=== PATIENT | male | born 1960 | race Hispanic/Latino ===

== ENCOUNTER 2020-07-30 09:03 | Outpatient (CLI) | payer OTHER ==
--- NOTE | 2020-07-30 11:08 | CT ---
CT SCAN FACIAL BONES WITH IV CONTRAST: INDICATION: Left facial pain. FINDINGS: The paranasal sinuses are well aerated and are clear. No mucosal edema. Prominent valerie bullosa in volving the right middle turbinate. Mild valerie bullosa involving the left middle turbinate. Septal deviation to the left. Narrowing of the infundibula bilaterally. Both maxillary sinuses are clear. Some minimal mucosal edema in the right sphenoid air cell peripherally. There is no evidence of periapical abscess involving the visualized teeth. Numerous missing teeth ar e noted. Soft tissues show no evidence of subcutaneous edema. There is no evidence of fluid or abscess collec tion in the left face. The visualized parotid glands and submandibular glands appear normal and symm etric. The nasopharynx, oropharynx, and visualized hypopharynx appear unremarkable. Vascular struct ures are unremarkable. No evidence of adenopathy. The visualized cervical spine was unremarkable wi th mild degenerative spurring from the visualized cervical vertebrae. The visualized facial bones ar e intact. IMPRESSION: No evidence of acute process. POS: [facility]
== END 2020-07-30 09:04 | disposition home or self-care (01) ==
LOC: SCSCT 09:03
PROVIDERS: ATTEND Specialist
DX: R51 Headache (principal)
CPT/HCPCS: 70487; 82565

== ENCOUNTER 2021-03-04 13:23 | Outpatient (CLI) | payer OTHER | END 2021-03-04 13:24 | disposition home or self-care (01) | LOC: TBSIIMAG 13:23 | PROVIDERS: ATTEND Orthopaedic Surgery | DX: M25.512 Pain in left shoulder (principal); M75.122 Complete rotator cuff tear or rupture of left shoulder, not specified as traumatic; S46.812A Strain of other muscles, fascia and tendons at shoulder and upper arm level, left arm, initial encounter ==